=== PATIENT | male | born 1985 | race African-American/Black ===

== ENCOUNTER 2017-03-28 21:07 | Emergency (ER) | payer OTHER ==
[~2017-03-28] VITALS: Ht 182.9 cm; Wt 76.0 kg
[~2017-03-28 21:07] MED LIST: CLIN150 PO
[2017-03-28 21:10] VITALS: BP 119/84; PULSE 80; RESP 18; TEMP 98.2; O2SAT 99
[2017-03-28] MEDS ORDERED: LIDOCAINE 1%/EPINEPHrine 1:100,000 SOLN 20 ML VIAL INFIL ONE (22:00)
[2017-03-28] MEDS ORDERED: LIDOCAINE 1%/EPINEPHrine 1:100,000 SOLN 50 ML VIAL ONE (22:06)
[2017-03-28] MEDS ORDERED: IBUP1TAB7 PO (22:38)
--- NOTE | 2017-03-28 22:40 | PD ---
HPI Chief Complaint: Injury Time Seen by Provider: 21:52 Travel History International Travel<30 days: No Contact w/Intl Traveler<30days: No Traveled to known affect area: No History of Present Illness HPI Patient is a 32-year-old male presenting to emergency for evaluation of a laceration to his left hand. Patient was at work when an knife fell to the floor, he attempted to grab it and cut his hand. Patient states his tetanus vaccine is up-to-date within the last 3 years. He denies any loss of function, numbness, tingling. Later this time. Symptoms onset was sudden, pain is alleviated at rest, the pain is exacerbated with movement to touch. Patient reports his pain is a 4 out of 10. [facility] Past Medical History Medical History: Denies Significant Hx Tetanus Vaccination: < 5 Years Social History Alcohol Use: No Tobacco Use: No Substance Use: No Allergies-Medications (Allergen,Severity, Reaction): Coded Allergies: penicillin G (Unverified Allergy, Unknown, A CHILD, 03/28/17) Reported Meds & Prescriptions Reported Meds & Active Scripts Active Ibuprofen 800 Mg Tab 800 Mg PO Q6HR PRN Review of Systems Except as stated in HPI: all other systems reviewed are Neg Skin: Positive Other (laceration) Physical Exam Narrative GENERAL: Well-developed, well-nourished, alert male. Presenting in no acute distress. SKIN: Warm and dry. 2.5 cm laceration to the palmar aspect of the hand over the first MCP. HEAD: Normocephalic. EYES: No scleral icterus. No injection or drainage. NECK: Supple, trachea midline. No JVD or lymphadenopathy. CARDIOVASCULAR: Regular rate and rhythm without murmurs, gallops, or rubs. RESPIRATORY: Breath sounds equal bilaterally. No accessory muscle use. GASTROINTESTINAL: Abdomen soft, non-tender, nondistended. MUSCULOSKELETAL: No cyanosis, or edema. Full Range of motion in left hand and fingers, 2+ radial pulse, brisk is a 3 second capillary refill. Patient is neurovascularly intact. BACK: Nontender without obvious deformity. No CVA tenderness. Data Data Last Documented VS Vital Signs Date Time Temp Pulse Resp B/P (MAP) Pulse Ox O2 Delivery O2 Flow Rate FiO2 03/28/17 21:10 98.2 80 18 119/84 (96) 99 Orders Orders Lidocai-Epi 1%-1:100,000 Inj (Xylocaine- (03/28/17 22:00) Lidocai-Epi 1%-1:100,000 Inj (Xylocaine- (03/28/17 22:06) Ed Discharge Order (03/28/17 22:40) [facility] Medical Decision Making Medical Screen Exam Complete: Yes Emergency Medical Condition: Yes Interpretation(s) Vital Signs Date Time Temp Pulse Resp B/P (MAP) Pulse Ox O2 Delivery O2 Flow Rate FiO2 03/28/17 21:10 98.2 80 18 119/84 (96) 99 Differential Diagnosis Laceration versus abrasion versus tendon injury versus other Narrative Course Patient is a well-appearing 32-year-old male presenting for evaluation of a laceration to his left hand that he sustained at work. Patient is neurovascularly intact, there are no focal deficits noted on exam. Please procedure report for laceration repair. Patient was advised on wound care instructions as well as need to return to emergency department for any new or worsening symptoms. He was educated on signs and symptoms of infection. He verbalized understanding of these instructions. Patient is stable for discharge. Procedures Procedure Narrative LACERATION LOCATION: Perez aspect of the left hand over the first MCP LENGTH: 2.5 cm NUMBER OF STITCHES/RANDOLPH: Stitches REPAIR: The area of the laceration was prepped with Betadine and sterilely draped. The laceration was infiltrated with 1% lidocaine with epi. The wound was copiously irrigated and explored without evidence of foreign body, tendon injury or neurovascular injury. The wound was closed using 4-0 Ethilon. This was a 1 layer repair. A sterile dressing was applied. The patient was advised to keep the dressing clean and dry. Patient tolerated the procedure well. Diagnosis Primary Impression: Laceration of hand Qualified Codes: S61.412A - Laceration without foreign body of left hand, initial encounter Referrals: Primary Care Physician 1 week Patient Instructions: Care For Your Stitches (ED), General Instructions, Laceration (ED) Departure Forms: Tests/Procedures, Work Release Enter return to work date: Mar 31, 2017 Special Instructions: Patient cannot submergent hand in water, he needs to be kept clean and dry. Additional Instructions: Stitches will need to be removed in 7-10 days, you can return to emergency department follow-up with her primary doctor Keep stitches clean and dry, do not submerge underwater Return to emergency department immediately for any new or worsening symptoms as discussed Med/Other Pt SpecificInfo: Prescription(s) given Scripts Ibuprofen (Ibuprofen) 800 Mg Tab 800 MG PO Q6HR Y for PAIN, #40 TAB 0 Refills Prov: Aislinn Isaac 03/28/17 Disposition: 01 DISCHARGE HOME Condition: Stable Aislinn Isaac Mar 28, 2017 22:40
== END 2017-03-28 23:05 | disposition home or self-care (01) ==
LOC: NEPD 21:07
DX: S61.412A Laceration without foreign body of left hand, initial encounter (principal); W26.0XXA Contact with knife, initial encounter; Y99.0 Civilian activity done for income or pay; Z88.0 Allergy status to penicillin
CPT/HCPCS: 12001

== ENCOUNTER 2017-04-04 00:37 | Emergency (ER) | payer SELFPAY ==
[~2017-04-04] VITALS: Ht 188 cm; Wt 78.0 kg
[~2017-04-04 00:37] MED LIST changes: -CLIN150 PO; +IBUP1TAB7 PO
[2017-04-04 00:41] VITALS: BP 109/62; PULSE 74; RESP 16; TEMP 98.5; O2SAT 98
[2017-04-04] MEDS ORDERED: BACT800T5 PO (01:08)
--- NOTE | 2017-04-04 01:12 | PD ---
HPI Chief Complaint: Skin Problem Time Seen by Provider: 00:47 Travel History International Travel<30 days: No Contact w/Intl Traveler<30days: No Traveled to known affect area: No History of Present Illness HPI 32-year-old black male presents emergency department with complaints of tender lumps under his right axilla over the past month or so. In the past week they have become increasingly tender. He denies any causative agent. Denies any prior history of abscess. Pain is mild. No exacerbating or palliative activity. PFSH Past Medical History Medical History: Denies Significant Hx Immunizations Current: Yes Tetanus Vaccination: < 5 Years Influenza Vaccination: No Past Surgical History Surgical History: No Previous Surgery Social History Alcohol Use: No Tobacco Use: No Substance Use: No Allergies-Medications (Allergen,Severity, Reaction): Coded Allergies: penicillin G (Unverified Allergy, Unknown, A CHILD, 04/04/17) Reported Meds & Prescriptions Reported Meds & Active Scripts Active Bactrim DS (Sulfamethoxazole-Trimethoprim) 800-160 Mg Tab 1 Tab PO BID Ibuprofen 800 Mg Tab 800 Mg PO Q6HR PRN Review of Systems Except as stated in HPI: all other systems reviewed are Neg Physical Exam Narrative GENERAL: This is a well-nourished, well-developed patient, in no apparent distress. SKIN: Patient has several superficial abscesses in the axilla. No fluctuance or pointing, ecchymoses or lesions. Warm and dry. HEAD: Atraumatic. Normocephalic. EYES: PERRL, EOMI, no discharge or injection. No scleral icterus. EARS: Clear NOSE: Nasal turbinates appear normal. THROAT: Mucosa pink and moist. Airway patent. NECK: Trachea midline. supple, moves head freely. LUNGS: Clear to auscultation. CV: Regular in rhythm. ABDOMEN: Soft nontender. EXT: No clubbing cyanosis or edema. Data Data Last Documented VS Vital Signs Date Time Temp Pulse Resp B/P (MAP) Pulse Ox O2 Delivery O2 Flow Rate FiO2 04/04/17 00:41 98.5 74 16 109/62 (78) 98 Orders Orders Sulfamet-Trimeth Ds 800-160 Mg (Bactrim (04/04/17 01:15) Ed Discharge Order (04/04/17 01:08) [facility] Medical Decision Making Medical Screen Exam Complete: Yes Emergency Medical Condition: Yes Medical Record Reviewed: Yes Differential Diagnosis MDM: High Differential diagnoses: Abscess, folliculitis, cellulitis, lymphangitis, abrasion, contact dermatitis Narrative Course Patient is given Bactrim DS p.o. This is superficial abscess right axilla Diagnosis Primary Impression: Superficial abscess right axilla Patient Instructions: General Instructions Additional Instructions: Rest. Elevation. keep clean and dry. Warm compresses Daily wound care with soap, water and Neosporin. Three Advil every 6 hours. Bactrim DS Follow-up with a primary care doctor in one week. Return to the ER for any problems. Med/Other Pt SpecificInfo: Prescription(s) given Scripts Sulfamethoxazole-Trimethoprim (Bactrim DS) 800-160 Mg Tab 1 TAB PO BID for Infection, #20 TAB 0 Refills Prov: Delvin Alonzo MD 04/04/17 Disposition: 01 DISCHARGE HOME Condition: Stable Mu Flores Apr 04, 2017 01:12
[2017-04-04] MEDS ORDERED: SULFAMETHOXAZOLE-TRIMETHOPRIM DS 800-160 MG TAB PO ONE (01:15)
== END 2017-04-04 01:53 | disposition home or self-care (01) ==
LOC: NEPD 00:37
DX: L02.411 Cutaneous abscess of right axilla (principal); Z88.0 Allergy status to penicillin
CPT/HCPCS: 99283